=== PATIENT | female | born 1980 | race Two or more races ===

== ENCOUNTER 2020-03-12 14:47 | Inpatient (IN) | payer OTHER ==
[~2020-03-12] VITALS: Ht 160 cm; Wt 108.9 kg
--- NOTE | 2020-03-12 18:24 | NUR ---
RECEIVED A CALL FROM LAB, COVID ANTIGEN RESULT IS NEGATIVE.
[2020-03-12] MEDS ORDERED: IBUP-1957 PO (18:45)
[2020-03-12] MEDS ORDERED: TAMO20TA4 PO (18:45)
--- NOTE | 2020-03-12 19:20 | NUR ---
rn ms admitting notes received patient in room awake alert and oriented x4, respirations even and unlabored with equal rise and fall of chest, states cramping pain to abdomen area, iv site to left ac #20g intact and patent, no redness, no infiltration present, belongings list done, denies any skin issues, oriented to staff and call light and kept within reach, safety precautions rendered, low bed and locked, all needs attended at this time will continue to monitor and await admission orders.
[2020-03-12 19:30] VITALS: BP 117/69
--- NOTE | 2020-03-12 20:20 | NUR ---
rn ms notes patient states she feels nausea kameron jean hospitalist made aware, new order for one time zofran 4mg now iv. given as ordered will continue to monitor.
[2020-03-12] MEDS ORDERED: ONDANSETRON HCL/PF 4 MG/2 ML VIAL IV ONE (20:30)
[2020-03-12 20:52] VITALS: BP 117/69
[2020-03-12] MEDS ORDERED: Z GUARD REMEDY 2 OZ OINT TP PRN (22:00)
[2020-03-12] MEDS ORDERED: ONDANSETRON HCL/PF 4 MG/2 ML VIAL IVP PRN (22:00)
[2020-03-12] MEDS ORDERED: ACETAMINOPHEN 325 MG TABLET PO PRN (22:00)
[2020-03-12] MEDS ORDERED: ZOLPIDEM TARTRATE 5 MG TABLET PO PRN (22:00)
[2020-03-12] MEDS ORDERED: MORPHINE SULFATE INJ 2 MG/ML DISP.SYRIN IV PRN (22:00)
[2020-03-12] MEDS: IV D5/0.45 NACL 1,000 ML IV PRN (22:14)
--- NOTE | 2020-03-12 22:20 | NUR ---
rn ms notes offered patient morphine for pain does not want morphine states " its too strong for me can i have toradol instead?" hospitalist kameron jean made aware with new orders noted read back and carried out, toradol 30mg iv one time now and toradol 15mg iv q6hr. patient made aware will give as ordered.
[2020-03-12] MEDS ORDERED: ENOXAPARIN SODIUM 40 MG/0.4 ML DISP.SYRIN SQ SCH (22:30)
[2020-03-12] MEDS ORDERED: PIPERACILLIN /TAZOBACTAM 3.375 G VIAL IV ONE (22:52)
[2020-03-12] MEDS ORDERED: KETOROLAC TROMETHAMINE INJ 30 MG/ML VIAL IV ONE (23:00)
[2020-03-12] MEDS: ZOSYN IVPB 3.375 G in IV D5W 50ml IV SCH (23:56)
[2020-03-13] MEDS ORDERED: PIPERACILLIN /TAZOBACTAM 3.375 G in IV D5W 50 ML IV SCH ×2
[2020-03-13] MEDS ORDERED: PIPERACILLIN /TAZOBACTAM 3.375 G VIAL IV ONE (04:03)
[2020-03-13] MEDS: KETOROLAC TROMETHAMINE INJ 30 MG/ML VIAL IV SCH ×4 (05:00→23:00)
[2020-03-13] MEDS: ZOSYN IVPB 3.375 G in IV D5W 50ml IV SCH (05:01)
--- NOTE | 2020-03-13 05:19 | NUR ---
rn ms notes patient refused scheduled toradol per patient does not need it at this time, no pain at this time.
--- NOTE | 2020-03-13 07:20 | NUR ---
rn ms closing notes patient in room awake alert and oriented x4, respirations even and unlabored with equal rise and fall of chest denies any cramping pain to abdomen area, iv site to left ac #20g intact and patent, no redness, no infiltration present, ivf running as ordered, , denies any skin issues, call light kept within reach, safety precautions rendered, low bed and locked, all needs attended at this time will continue to monitor and endorse to next shift, all due meds given as ordered, remains comfortable.
--- NOTE | 2020-03-13 07:20 | NUR ---
MS RN NOTES PATIENT IN BED ALERT ORIENTED X 4. NO ACUTE DISTRESS NOTED. BREATHING UNLABORED. NO SOB NOTED. DENIED PAIN AT THIS TIME. IV ACCESS PATENT AND INTACT, NO REDNESS. NO BLEEDING NOTED. SAFETY MEASURES IN PLACE, CALL LIGHT WITHIN REACH. WILL CONTINUE TO MONITOR ACCORDINGLY.
[2020-03-13 07:56] LABS: BASOPHILS % (AUTO) 0.6 % (0.0-2.0); EOSINOPHILS % (AUTO) 1.4 % (0.0-6.0); HEMATOCRIT 39 % (33-45); HEMOGLOBIN 13.2 g/dL (11.5-14.8); LYMPHOCYTES # (AUTO) 1.9 /CMM (0.8-4.8); MEAN CORPUSCULAR HGB CONC 34 g/dl (31.0-36.0); MEAN CORPUSCULAR VOLUME 85 fL (82-100); MONOCYTES # (AUTO) 0.3 /CMM (0.1-1.30); MONOCYTES % (AUTO) 5.3 % (2.0-12.0); NEUTROPHILS # (AUTO) 4.2 /CMM (1.8-8.9); NEUTROPHILS % (AUTO) 63.7 % (43.0-81.0); PLATELET COUNT (AUTO) 213 /CMM (150-450); WHITE BLOOD COUNT (AUTO) 6.5 K/uL (4.3-11.0)
[2020-03-13 08:05] LABS: ALBUMIN 3.1 g/dL (3.4-5.0); BILIRUBIN,TOTAL 1.3 mg/dL (0.2-1.0); CALCIUM, SERUM 7.8 mg/dL (8.5-10.1); CREATININE 0.6 mg/dL (0.6-1.3); MAGNESIUM 1.8 mg/dL (1.8-2.4); PHOSPHORUS 3.5 mg/dL (2.5-4.9); POTASSIUM 3.7 mmol/L (3.5-5.1); TOTAL PROTEIN, SERUM 7.3 g/dL (6.4-8.2)
[2020-03-13 08:11] LABS: THYROID STIMULATING HORMONE 2.06 uIU/mL (0.358-3.74)
[2020-03-13 08:19] VITALS: BP 122/77
[2020-03-13] MEDS: TAMOXIFEN CITRATE 10 MG TABLET PO SCH (08:34)
[2020-03-13] MEDS: PANTOPRAZOLE 40 MG VIAL IV SCH (08:34)
--- NOTE | 2020-03-13 10:04 | NUR ---
PT NOT READY,RN WILL CALL ONCE CONSENT @[phone]
[2020-03-13] MEDS: PIPERACILLIN /TAZOBACTAM 3.375 G in IV D5W 100 ML IV SCH ×2 (11:39→20:19)
[2020-03-13] MEDS ORDERED: IV NS 0.9% 250 ML IV ONE (13:40)
[2020-03-13] MEDS ORDERED: IOHEXOL-350 100 ML VIAL IV ONE (13:40)
[2020-03-13 16:00] VITALS: BP 131/59
--- NOTE | 2020-03-13 17:32 | NUR ---
MS RN NOTES PATIENT REFUSED TORADOL DESPITE OF EXPLANATION OF RISKS AND BENEFITS, PER PATIENT " I'M OK RIGHT NOW, NO PAIN"
--- NOTE | 2020-03-13 19:00 | NUR ---
rn ms opening notes received patient in room awake alert and oriented x4, respirations even and unlabored with equal rise and fall of chest denies any cramping pain to abdomen area at this time, iv site to left ac #20g intact and patent, no redness, no infiltration present, ivf running as ordered, denies any skin issues, call light kept within reach, safety precautions rendered, low bed and locked, all needs attended at this time will continue to monitor and attend to needs, remains comfortable. oriented to staff.
--- NOTE | 2020-03-13 19:00 | NUR ---
MS RN NOTES PATIENT IN BED ALERT ORIENTED X 4. NO ACUTE DISTRESS NOTED. BREATHING UNLABORED. NO SOB NOTED. DENIED PAIN AT THIS TIME. IV ACCESS PATENT AND INTACT, NO REDNESS. NO BLEEDING NOTED. NEEDS ATTENDED AND ANTICIPATED, SAFETY MEASURES IN PLACE, CALL LIGHT WITHIN REACH. WILL ENDORSE TO NIGHT NURSE FOR CONTINUITY OF CARE.
[2020-03-13 20:00] VITALS: BP 123/78
[2020-03-13] MEDS: IV D5/0.45 NACL 1,000 ML IV PRN (20:20)
[2020-03-13] MEDS: ENOXAPARIN SODIUM 40 MG/0.4 ML DISP.SYRIN SQ SCH (20:43)
[2020-03-14] MEDS: PIPERACILLIN /TAZOBACTAM 3.375 G in IV D5W 100 ML IV SCH ×3 (04:46→20:28)
[2020-03-14] MEDS: KETOROLAC TROMETHAMINE INJ 30 MG/ML VIAL IV SCH ×5 (05:00→23:11)
--- NOTE | 2020-03-14 06:50 | NUR ---
rn ms closing notes patient in room awake alert and oriented x4, respirations even and unlabored with equal rise and fall of chest denies any cramping pain to abdomen area at this time, refused toradol throughout shift, iv site to left ac #20g intact and patent, no redness, no infiltration present, ivf running as ordered, denies any skin issues, call light kept within reach, safety precautions rendered, low bed and locked, all needs attended at this time will continue to monitor and attend to needs, remains comfortable. will endorse to next shift.tolerated clear liquids.
--- NOTE | 2020-03-14 07:26 | NUR ---
MS RN NOTES PATIENT RECEIVED IN BED SLEEPING, EASILY AWAKEN BY NAME AND LIGHT TOUCH. ALERT AND ORIENTED X 4. ON ROOM AIR WITH NO SIGNS OF RESPIRATORY DISTRESS AT THIS TIME, WITH EVEN NON-LABORED BREATHING, AND NO SOB NOTED. IV ACCESS INTACT AND PATENT, CURRENTLY INFUSING IV FLUIDS. SKIN WARM AND DRY TO TOUCH. PATIENT PRESENTS WITH NO SIGNS OF PAIN OR DISCOMFORT. SAFETY PRECAUTIONS IMPLEMENTED WITH BED LOCKED, BED IN THE LOWEST POSITION, BILATERAL SIDE RAILS UP, AND CALL LIGHT WITHIN EASY REACH OF THE PATIENT. WILL CONTINUE TO MONITOR PATIENT.
[2020-03-14 07:44] LABS: BASOPHILS % (AUTO) 0.6 % (0.0-2.0); EOSINOPHILS % (AUTO) 1.8 % (0.0-6.0); HEMATOCRIT 39 % (33-45); HEMOGLOBIN 13.2 g/dL (11.5-14.8); LYMPHOCYTES # (AUTO) 2.3 /CMM (0.8-4.8); LYMPHOCYTES % (AUTO) 38.2 % (20.0-44.0); MEAN CORPUSCULAR HGB CONC 34 g/dl (31.0-36.0); MEAN CORPUSCULAR VOLUME 84 fL (82-100); MONOCYTES # (AUTO) 0.3 /CMM (0.1-1.30); MONOCYTES % (AUTO) 5.2 % (2.0-12.0); NEUTROPHILS # (AUTO) 3.2 /CMM (1.8-8.9); NEUTROPHILS % (AUTO) 54.2 % (43.0-81.0); PLATELET COUNT (AUTO) 240 /CMM (150-450); RED BLOOD CELL COUNT(AUTO) 4.65 MIL/uL (4.0-5.2); WHITE BLOOD COUNT (AUTO) 5.9 K/uL (4.3-11.0)
[2020-03-14 08:00] VITALS: BP 117/63
[2020-03-14 08:09] LABS: CALCIUM, SERUM 8.2 mg/dL (8.5-10.1); CREATININE 0.6 mg/dL (0.6-1.3); MAGNESIUM 1.9 mg/dL (1.8-2.4); PHOSPHORUS 3.5 mg/dL (2.5-4.9); POTASSIUM 3.5 mmol/L (3.5-5.1)
[2020-03-14] MEDS: PANTOPRAZOLE 40 MG VIAL IV SCH (08:18)
[2020-03-14] MEDS: TAMOXIFEN CITRATE 10 MG TABLET PO SCH (08:19)
--- NOTE | 2020-03-14 10:32 | NUR ---
MS RN NOTES PATIENT COMPLAINING OF NAUSEA. ADMINISTERED PRN ZOFRAN 4mg ORDERED. NO EMESIS PRESENT AT THIS TIME. WILL CONTINUE TO MONITOR PATIENT.
[2020-03-14 16:00] VITALS: BP 115/67
--- NOTE | 2020-03-14 17:49 | NUR ---
MS RN NOTES PATIENT HAS SCHEDULED TORADOL, DUE TO PATIENT NOT HAVING ANY PAIN OR DISCOMFORT AT THIS TIME PATIENT STATING 0/10 PAIN, PATIENT REFUSED MEDICATION. WILL CONTINUE TO MONITOR PATIENT.
--- NOTE | 2020-03-14 18:36 | NUR ---
MS RN NOTES PATIENT IN BED RESTING COMFORTABLY ALERT AND ORIENTED X 4. ON ROOM AIR WITH NO SIGNS OF RESPIRATORY DISTRESS AT THIS TIME, WITH EVEN NON-LABORED BREATHING, AND NO SOB NOTED. IV ACCESS INTACT AND PATENT, CURRENTLY INFUSING IV FLUIDS. SKIN KEPT CLEAN WARM AND DRY TO TOUCH. PATIENT PRESENTS WITH NO SIGNS OF PAIN OR DISCOMFORT AT THIS TIME. MET ALL OF PATIENT'S NEEDS. SAFETY PRECAUTIONS IMPLEMENTED WITH BED LOCKED, BED IN THE LOWEST POSITION, BILATERAL SIDE RAILS UP, AND CALL LIGHT WITHIN EASY REACH OF THE PATIENT. WILL ENDORSE PLAN OF CARE TO UPCOMING NURSE.
[2020-03-14 20:00] VITALS: BP 114/72
--- NOTE | 2020-03-14 20:00 | NUR ---
RN NOTES RECEIVED PT. AWAKE ON BED, A/OX4, AMBULATORY DENIES PAIN, NO SOB, CALL LIGHT WITHIN REACH, [id number], CONTINUE TO MONITOR
[2020-03-14] MEDS: ENOXAPARIN SODIUM 40 MG/0.4 ML DISP.SYRIN SQ SCH (20:36)
--- NOTE | 2020-03-14 23:00 | NUR ---
RN NOTES PT. REFUSED TORADOL 15MG IV, ADVISED THE PT. THE IMPORTANCE OF THIS MEDICATION , BUT PT. STILL REFUSED THE MEDICATION
[2020-03-14] MEDS: IV D5/0.45 NACL 1,000 ML IV PRN (23:10)
[2020-03-15] MEDS: PIPERACILLIN /TAZOBACTAM 3.375 G in IV D5W 100 ML IV SCH ×3 (03:58→20:06)
[2020-03-15] MEDS: KETOROLAC TROMETHAMINE INJ 30 MG/ML VIAL IV SCH ×4 (06:11→22:21)
--- NOTE | 2020-03-15 06:33 | NUR ---
RN NOTES AWAKE, DENIES PAIN, NO SOB, MORNING CARE RENDERED, CALL LIGHT WITHIN REACH, [id number], PT. NEEDS ATTENDED
[2020-03-15 06:34] LABS: BASOPHILS % (AUTO) 0.8 % (0.0-2.0); HEMATOCRIT 39 % (33-45); HEMOGLOBIN 13.1 g/dL (11.5-14.8); LYMPHOCYTES % (AUTO) 36.9 % (20.0-44.0); MEAN CORPUSCULAR HGB CONC 34 g/dl (31.0-36.0); MEAN CORPUSCULAR VOLUME 85 fL (82-100); MONOCYTES # (AUTO) 0.3 /CMM (0.1-1.30); MONOCYTES % (AUTO) 6.2 % (2.0-12.0); NEUTROPHILS # (AUTO) 2.9 /CMM (1.8-8.9); NEUTROPHILS % (AUTO) 54.1 % (43.0-81.0); PLATELET COUNT (AUTO) 227 /CMM (150-450); RED BLOOD CELL COUNT(AUTO) 4.55 MIL/uL (4.0-5.2); WHITE BLOOD COUNT (AUTO) 5.3 K/uL (4.3-11.0)
[2020-03-15 06:52] LABS: CALCIUM, SERUM 8.2 mg/dL (8.5-10.1); CREATININE 0.7 mg/dL (0.6-1.3); MAGNESIUM 1.9 mg/dL (1.8-2.4); PHOSPHORUS 4.2 mg/dL (2.5-4.9); POTASSIUM 3.3 mmol/L (3.5-5.1)
--- NOTE | 2020-03-15 07:30 | NUR ---
MS/RN OPENING NOTE Received patient resting in bed, A&O x 4. Denies any pain and discomfort at this time. Breathing even and non-labored on RA, no SOB noted. No cardiac distress noted. IV access noted on L AC #20 gauge, patent and intact, and running D5 1/2 NS @ 75 mL/hr. No s/s of infiltration, infection, or bleeding noted on site. Sensation from all peripheral extremities intact. Fall precautions maintained. Will continue to monitor for any changes of condition.
[2020-03-15 08:00] VITALS: BP 101/62
[2020-03-15] MEDS: PANTOPRAZOLE 40 MG TABLET.DR PO SCH (08:21)
[2020-03-15] MEDS: TAMOXIFEN CITRATE 10 MG TABLET PO SCH (08:32)
[2020-03-15] MEDS ORDERED: POTASSIUM CHLORIDE 20 MEQ TAB.PRT.SR PO SCH (09:30)
[2020-03-15 16:00] VITALS: BP 117/74
--- NOTE | 2020-03-15 19:00 | NUR ---
MS/RN CLOSING NOTE Patient resting in bed, watching TV, remains A&O x 4. No complaints of pain and discomfort at this time. Breathing even and non-labored on RA. No respiratory or cardiac distress noted. IV access on L AC #20 remains patent and intact, and running D5 1/2 NS @ 75 ml/hr. No s/s of infection, infiltration, or bleeding noted on site. Sensation from all peripheral extremities intact. Tolerated soft diet well. Patient ambulatory, instructed patient to use call light when in need of assistance. Bed locked to its lowest position, side rails x 2 up. Will endorse to mine shifter nurse.
[2020-03-15 20:00] VITALS: BP 131/76
[2020-03-15] MEDS: ENOXAPARIN SODIUM 40 MG/0.4 ML DISP.SYRIN SQ SCH (20:06)
--- NOTE | 2020-03-15 21:48 | NUR ---
furniture mover: received report from day rn joao at 1910. Pt a/o x4, on ra, denies any sob or pain or discomfort at this time. iv access patent and flushing well, infusing with d5 1/2 ns at 75ml/hr. discussed plan of care to pt, including dc planning in am. pt agree and understand. iv atb zosyn and lovenox administered as scheduled. vs taken and recorded for 1999. Pt ambulatory, continent, also tolerating soft diet without any reported n/v before and after eating. Safety precautions for fall initiated, call light in reach, will continue to monitor.
[2020-03-15] MEDS: IV D5/0.45 NACL 1,000 ML IV PRN (22:07)
[2020-03-16] MEDS: PIPERACILLIN /TAZOBACTAM 3.375 G in IV D5W 100 ML IV SCH (04:05)
[2020-03-16] MEDS: KETOROLAC TROMETHAMINE INJ 30 MG/ML VIAL IV SCH ×2 (05:12→11:00)
[2020-03-16 06:52] LABS: BASOPHILS # (AUTO) 0.1 /CMM (0.0-0.2); EOSINOPHILS % (AUTO) 2.1 % (0.0-6.0); HEMATOCRIT 39 % (33-45); HEMOGLOBIN 13.1 g/dL (11.5-14.8); LYMPHOCYTES # (AUTO) 2.3 /CMM (0.8-4.8); LYMPHOCYTES % (AUTO) 40.4 % (20.0-44.0); MEAN CORPUSCULAR HGB CONC 34 g/dl (31.0-36.0); MEAN CORPUSCULAR VOLUME 84 fL (82-100); MONOCYTES # (AUTO) 0.3 /CMM (0.1-1.30); MONOCYTES % (AUTO) 5.5 % (2.0-12.0); NEUTROPHILS # (AUTO) 2.9 /CMM (1.8-8.9); PLATELET COUNT (AUTO) 227 /CMM (150-450); RED BLOOD CELL COUNT(AUTO) 4.58 MIL/uL (4.0-5.2); WHITE BLOOD COUNT (AUTO) 5.8 K/uL (4.3-11.0)
--- NOTE | 2020-03-16 07:00 | NUR ---
End of shift report: Pt tolerated soft diet well, no reports of n/v throughout the shift. All due meds administered. Iv access remains patent and flushing well, no s/s of iv infiltration noted, remains on ivf as ordered. Plan of care: DC plan, outpt gi workup, cm to assist for referral for outpt pearl digger. Vs remains stable, needs attended. Safety precautions for fall remains engaged, call light in reach, will endorse to day rn for continuity of care.
--- NOTE | 2020-03-16 07:30 | NUR ---
MS/RN OPENING NOTE Received patient sitting up in bed, A&O x 4. No complaints any pain and discomfort at this time. Breathing even and non-labored on RA, no SOB noted. No cardiac distress noted. IV access noted on L AC #20 gauge, patent and intact, and running D5 1/2 NS @ 75 mL/hr. No s/s of infiltration, infection, or bleeding noted on site. Bed locked to its lowest position, side rails x 2 up, and call light in reach. Instructed patient to use call light if in need of any assistance. Will continue with current plan of care.
[2020-03-16 08:00] VITALS: BP 131/57
[2020-03-16] MEDS: PANTOPRAZOLE 40 MG TABLET.DR PO SCH (08:17)
[2020-03-16] MEDS: TAMOXIFEN CITRATE 10 MG TABLET PO SCH (08:17)
[2020-03-16 08:25] LABS: CALCIUM, SERUM 8.2 mg/dL (8.5-10.1); CREATININE 0.7 mg/dL (0.6-1.3); MAGNESIUM 1.9 mg/dL (1.8-2.4); PHOSPHORUS 4.2 mg/dL (2.5-4.9); POTASSIUM 3.7 mmol/L (3.5-5.1)
[2020-03-16] MEDS ORDERED: AMOX-430 PO (09:55)
--- NOTE | 2020-03-16 11:00 | NUR ---
MS/RN NOTE Patient refused toradol, states "I'm not having any pain and I'm going home soon anyway." Will continue to monitor.
--- NOTE | 2020-03-16 11:30 | NUR ---
MS/INDUSTRIAL MAINTENANCE MECHANIC NOTE Patient picked up by sister, Tracey @[phone]. Patient remains stable throughout shift and upon discharge. VSS, afebrile, no SOB noted, denies any pain and discomfort at this time. Breathing even and non-labored on RA. No cardiac distress noted. IV access on L AC #20 removed with catheter intact. No s/s of infiltration, bleeding, or infection noted on site, placed a clean dry dressing on top. Sensation from all peripheral extremities remained intact. Tolerated diet well, no s/s of n/v. Patient ambulates steadily, accompanied by TAR HEATER OPERATOR. Skin photos refused by patient, stating "I just want to go home." Patient left facility safely along with all belongings and hospital documents.
== END 2020-03-16 11:25 | disposition home or self-care (01) | DRG 244 ==
LOC: MED 17:05
PROVIDERS: ADMIT Nurse Practitioner Acute Care; ATTEND Nurse Practitioner Acute Care
DX: K57.20 Diverticulitis of large intestine with perforation and abscess without bleeding (principal); K40.90 Unilateral inguinal hernia, without obstruction or gangrene, not specified as recurrent; Z85.3 Personal history of malignant neoplasm of breast; E66.9 Obesity, unspecified; Z68.41 Body mass index [BMI] 40.0-44.9, adult; R53.1 Weakness; G89.29 Other chronic pain; M79.602 Pain in left arm; E11.65 Type 2 diabetes mellitus with hyperglycemia
CPT/HCPCS: 36415; 80048-TC; 80053-TC; 80061-TC; 83540-TC; 83735-TC; 84100-TC; 84443-TC; 84702-TC; 85025-TC; 87081-TC; C9113; G0378; J1650; J1885; J2405; J2543; J3490; J7050; J7060; Q9967